=== PATIENT | female | born 1935 | race Caucasian/White ===

== ENCOUNTER 2021-01-27 15:54 | Emergency (ER) | payer MEDICARE ==
[~2021-01-27] VITALS: Ht 160 cm; Wt 56.8 kg
[2021-01-27] MEDS ORDERED: normal saline 1000ML IV soln IVB ONE (17:00)
[2021-01-27 17:32] LABS: BASOPHILS # (AUTO) 0.1 X10'3 (0-0.2); BASOPHILS % (AUTO) 0.9 % (0-1); EOSINOPHILS % (AUTO) 0.5 % (0-6); HEMATOCRIT 42.1 % (35.0-45.0); HEMOGLOBIN 14.2 g/dl (12.0-16.0); LYMPHOCYTES # (AUTO) 0.9 X10'3 (1.1-4.8); LYMPHOCYTES % (AUTO) 15.8 % (21-51); MEAN CORPUSCULAR HGB CONC 33.8 g/dL (33.0-36.5); MEAN CORPUSCULAR VOLUME 85.7 FL (78-98); MONOCYTES # (AUTO) 0.5 X10'3 (0-0.9); MONOCYTES % (AUTO) 8.8 % (2-12); NEUTROPHILS # (AUTO) 4.4 X10'3 (1.8-7.7); PLATELET COUNT 212 X10'3 (140-440); RED BLOOD COUNT 4.92 X10'6 (4.20-5.60); RED CELL DISTRIBUTION WIDTH 13.7 % (11.5-14.5); WHITE BLOOD COUNT 5.9 X10'3 (4.5-11.0)
[2021-01-27 17:44] LABS: ALANINE AMINOTRANSFERASE 23 U/L (12-78); ALBUMIN 3.6 G/DL (3.4-5.0); ALBUMIN/GLOBULIN RATIO 1.1 (1.1-1.5); ALKALINE PHOSPHATASE 62 IU/L (46-116); ANION GAP 9 (8-16); ASPARTATE AMINO TRANSFERASE 31 U/L (10-37); BILIRUBIN,TOTAL 1.3 MG/DL (0.1-1.0); BLOOD UREA NITROGEN 15 MG/DL (7-18); BUN/CREATININE RATIO 20.5 (6.6-38.0); CALCIUM 9.3 MG/DL (8.5-10.1); CHLORIDE 95 MMOL/L (99-107); CREATININE 0.73 MG/DL (0.40-0.90); GLUCOSE 119 MG/DL (70-104); POTASSIUM 4.3 MMOL/L (3.5-5.1); SODIUM 132 MMOL/L (135-145); TOTAL PROTEIN 6.9 G/DL (6.4-8.2); eGFR 76 ML/MIN
[2021-01-27 17:45] LABS: CREATINE KINASE 67 U/L (26-192)
[2021-01-27 18:35] VITALS: BP 120/76
[2021-01-27 18:43] LABS: CLARITY,URINE CLOUDY (Clear); COLOR,URINE YELLOW (Yellow); GLUCOSE, URINE NEGATIVE (Neg); KETONES,URINE NEGATIVE (Neg); LEUKOCYTE ESTERASE ,URINE SMALL (Neg); NITRITES, URINE NEGATIVE (Neg); OCCULT BLOOD,URINE NEGATIVE (Neg); PROTEIN,URINE NEGATIVE (Neg); UROBILINOGEN,URINE 0.2 E.U/dL (0.2-1.0)
[2021-01-27 19:08] LABS: UA COLLECTION TYPE CLN CATCH MIDSTREAM
[2021-01-27 19:12] LABS: RBC,URINE NONE SEEN /HPF (0-2); WBC,URINE 0-4 /HPF (0-4)
[2021-01-27 19:13] LABS: AMORPHOUS PHOSPHATES 1+; BACTERIA,URINE FEW /HPF (Neg); FINE GRANULAR CAST 0-3 /LPF (NEGATIVE); MUCUS STRANDS MANY /LPF (Neg); SQUAMOUS EPITHELIAL CELL,UR FEW /LPF (FEW)
--- NOTE | 2021-01-31 10:23 | NUR ---
PT CALLED REGARDING VISIT ON 01/27/21 AND WAS NOTIFIED THAT SHE HAD A UTI AND NEEDED ABX. BACTRIM DS 1 TAB PO BID x7 DAYS WAS ORDERED BY DR LEGGETT AND CALLED INTO [facility] [place] PER PT'S REQUEST.
== END 2021-01-27 19:56 | disposition home or self-care (01) ==
LOC: ER 15:55
DX: R51.9 Headache, unspecified (principal); Z20.822 Contact with and (suspected) exposure to COVID-19; R11.2 Nausea with vomiting, unspecified; M25.511 Pain in right shoulder; Z00.00 Encounter for general adult medical examination without abnormal findings; I10 Essential (primary) hypertension; J44.9 Chronic obstructive pulmonary disease, unspecified; Z85.118 Personal history of other malignant neoplasm of bronchus and lung; Z90.2 Acquired absence of lung [part of]; Z90.49 Acquired absence of other specified parts of digestive tract; Z90.710 Acquired absence of both cervix and uterus; Z79.82 Long term (current) use of aspirin; Z79.2 Long term (current) use of antibiotics; Z79.899 Other long term (current) drug therapy
CPT/HCPCS: 36415; 80053; 81001; 82550; 84484; 85025; 85610; 87077; 87088; 87186; 87635; 93005; 96360; 99284; J7030

== ENCOUNTER 2021-01-31 16:35 | Emergency (ER) | payer MEDICARE ==
[~2021-01-31] VITALS: Ht 160 cm; Wt 59.1 kg
[2021-01-31] MEDS ORDERED: normal saline 1000ml 1,000 ML IV ONE (17:20)
[2021-01-31] MEDS ORDERED: ondansetron/PF 4mg/2ml inj IV ONE (17:25)
[2021-01-31] MEDS ORDERED: fentaNYL/PF 50MCG/1 ML 2ML syringe IV ONE (17:40)
[2021-01-31 18:20] LABS: BASOPHILS % (AUTO) 0.8 % (0-1); EOSINOPHILS % (AUTO) 0.5 % (0-6); HEMATOCRIT 42.6 % (35.0-45.0); HEMOGLOBIN 14.5 g/dl (12.0-16.0); LYMPHOCYTES % (AUTO) 17.7 % (21-51); MEAN CORPUSCULAR HEMOGLOBIN 29.3 PG (27.0-31.0); MEAN CORPUSCULAR HGB CONC 34.1 g/dL (33.0-36.5); MEAN PLATELET VOLUME 7.3 FL (7.4-10.4); MONOCYTES # (AUTO) 0.6 X10'3 (0-0.9); MONOCYTES % (AUTO) 11.2 % (2-12); NEUTROPHILS # (AUTO) 3.9 X10'3 (1.8-7.7); NEUTROPHILS % (AUTO) 69.8 % (42-75); PLATELET COUNT 224 X10'3 (140-440); RED BLOOD COUNT 4.95 X10'6 (4.20-5.60); RED CELL DISTRIBUTION WIDTH 13.7 % (11.5-14.5); WHITE BLOOD COUNT 5.6 X10'3 (4.5-11.0)
[2021-01-31 18:38] LABS: ALANINE AMINOTRANSFERASE 21 U/L (12-78); ALBUMIN 3.5 G/DL (3.4-5.0); ALBUMIN/GLOBULIN RATIO 1.1 (1.1-1.5); ALKALINE PHOSPHATASE 53 IU/L (46-116); ANION GAP 8 (8-16); ASPARTATE AMINO TRANSFERASE 21 U/L (10-37); BILIRUBIN,TOTAL 0.8 MG/DL (0.1-1.0); BLOOD UREA NITROGEN 16 MG/DL (7-18); BUN/CREATININE RATIO 23.2 (6.6-38.0); CALCIUM 9.2 MG/DL (8.5-10.1); CHLORIDE 91 MMOL/L (99-107); CREATININE 0.69 MG/DL (0.40-0.90); GLUCOSE 121 MG/DL (70-104); LIPASE 70 U/L (73-393); SODIUM 131 MMOL/L (135-145); TOTAL CARBON DIOXIDE 32.2 MMOL/L (24-32); TOTAL PROTEIN 6.7 G/DL (6.4-8.2); eGFR 81 ML/MIN
[2021-01-31 18:43] LABS: POTASSIUM 2.9 MMOL/L (3.5-5.1)
[2021-01-31] MEDS ORDERED: potassium Cl 20 mEq SR tablet PO ONE (18:55)
--- NOTE | 2021-01-31 19:08 | NUR ---
PLACED IN AIRBORN PRECAUTIONS FOR CURRENT SHINGLES OUTBREAK. PT WITH FAMILY AT BEDSIDE.
[2021-01-31] MEDS ORDERED: ketorolac trometh. 30mg/ml inj. IM ONE (19:55)
--- NOTE | 2021-01-31 20:11 | NUR ---
pt sitting up and reports nausea. rn abram at bedside. pts family at bedside.
--- NOTE | 2021-01-31 20:12 | NUR ---
anna raines at bedside to reevaluate pt.
[2021-01-31] MEDS: ketorolac tromethamine 15mg/ml inj. IV ONE ×2 (20:14→21:57)
[2021-01-31 20:32] LABS: CLARITY,URINE CLEAR (Clear); COLOR,URINE YELLOW (Yellow); GLUCOSE, URINE NEGATIVE (Neg); KETONES,URINE NEGATIVE (Neg); LEUKOCYTE ESTERASE ,URINE NEGATIVE (Neg); NITRITES, URINE NEGATIVE (Neg); OCCULT BLOOD,URINE NEGATIVE (Neg); PROTEIN,URINE NEGATIVE (Neg); UA COLLECTION TYPE STRAIGHT CATH; UROBILINOGEN,URINE 0.2 E.U/dL (0.2-1.0)
[2021-01-31] MEDS ORDERED: iohexol 300mg/ml 100ml inj. ONE (21:36)
--- NOTE | 2021-01-31 21:56 | NUR ---
Pt just returned from CT. To be given dose of toradol per LEORA Monahan. Family remains at bedside.
[2021-01-31 22:46] LABS: URINE AMPHETAMINE SCREEN NEGATIVE (Neg); URINE BARBITUATE SCREEN NEGATIVE (Neg); URINE BENZODIAZEPINES SCREEN NEGATIVE (Neg); URINE CANNABINOID SCREEN NEGATIVE (Neg); URINE COCAINE SCREEN NEGATIVE (Neg); URINE METHADONE SCREEN NEGATIVE (Neg); URINE OPIATE SCREEN NEGATIVE (Neg); URINE PHENCYCLIDINE SCREEN NEGATIVE (Neg)
--- NOTE | 2021-01-31 23:08 | NUR ---
LEORA PRIETO, AT BEDSIDE UPDATING FAMILY AND PT ON PLAN OF CARE. ASSU ING CARE OF PT FROM RANDY WHARTON.
--- NOTE | 2021-01-31 23:24 | NUR ---
PTS FAMILY UPSET THAT SHE IS NOT BEING ADMITTED, PA NOTIFIED AND AT BEDSIDE TO SPEAK WITH PT AND HER FAMILY
[2021-01-31] MEDS ORDERED: GABA300C PO (23:27)
[2021-01-31] MEDS ORDERED: VALA10002 PO (23:27)
[2021-01-31] MEDS ORDERED: DIPH-423 PO (23:27)
[2021-01-31] MEDS ORDERED: PRED20TA PO (23:27)
[2021-01-31] MEDS ORDERED: dexamethasone 4mg tablet PO ONE (23:30)
[2021-01-31] MEDS ORDERED: PROC-8 PO (23:34)
[2021-02-01 00:03] VITALS: BP 142/68
== END 2021-02-01 00:07 | disposition home or self-care (01) ==
LOC: ER 16:35
DX: R11.2 Nausea with vomiting, unspecified (principal); B02.9 Zoster without complications; R51.9 Headache, unspecified; I10 Essential (primary) hypertension; J44.9 Chronic obstructive pulmonary disease, unspecified; Z90.49 Acquired absence of other specified parts of digestive tract; Z98.890 Other specified postprocedural states; Z60.2 Problems related to living alone; Z88.6 Allergy status to analgesic agent; Z88.1 Allergy status to other antibiotic agents; Z88.5 Allergy status to narcotic agent; Z79.899 Other long term (current) drug therapy
CPT/HCPCS: 36415; 74177; 80053; 80305; 81003; 83690; 85025; 96361; 96374; 96375; 99285; J1885; J2405; J3010; J7030; Q9967